=== PATIENT | female | born 1975 | race Caucasian/White ===

== ENCOUNTER → 2017-07-29 | Outpatient (CLI) | payer MEDICAID ==
[~2017-07-29] MED LIST: CYCL1TAB29 PO; LORA-474 PO; MEDR4PAK PO; OMEP40CA2 PO; PANT40TA3 PO; PREG25 PO; TRAM50TA PO; TYLETAB34 PO; ZOFR4TAB3 SL
[2017-07-29 13:35] LABS: AUTOMATED NEUTROPHIL # 7.5 TH/MM3 (1.8-7.7); BASOPHIL # 0.1 TH/MM3 (0-0.2); BASOPHIL % 0.7 % (0.0-2.0); EOSINOPHIL # 0.4 TH/MM3 (0-0.4); EOSINOPHIL % 3.4 % (0.0-4.0); HEMATOCRIT 36.9 % (35.0-46.0); HEMO FLAGS DIFF FINAL; LYMPH % 24.6 % (9.0-44.0); LYMPHOCYTE # 2.9 TH/MM3 (1.0-4.8); MEAN CORPUSCULAR HEMOGLOBIN 27.3 PG (27.0-34.0); MEAN CORPUSCULAR HGB CONC 32.5 % (32.0-36.0); MONO % 6.9 % (0.0-8.0); NEUT % 64.4 % (16.0-70.0); PLATELET COUNT 452 TH/MM3 (150-450); RED BLOOD COUNT 4.39 MIL/MM3 (4.00-5.30); RED CELL DISTRIBUTION WIDTH 15.8 % (11.6-17.2); WHITE BLOOD COUNT 11.6 TH/MM3 (4.0-11.0)
[2017-07-29 13:53] LABS: BLOOD, URINE NEG (NEG); COMMENT (UR) CULT NOT INDICATED; CULTURE IF INDICATED CULT NOT INDICATED; GLUCOSE,URINE NEG (NEG); KETONE, URINE NEG (NEG); NITRITE,URINE NEG (NEG); SQUAMOUS EPITHELIAL CELL URINE <1 /hpf (0-5); URINE COLOR YELLOW (YELLW/STRAW)
[2017-07-29 14:09] LABS: ANION GAP 6 MEQ/L (5-15); BICARBONATE 28.2 MEQ/L (21.0-32.0); BLOOD UREA NITROGEN 10 MG/DL (7-18); CHLORIDE 106 MEQ/L (98-107); GLOMERULAR FILTRATION RATE 66 ML/MIN (>89); GLUCOSE,FASTING 82 MG/DL (74-99); POTASSIUM 4.7 MEQ/L (3.5-5.1); SODIUM (NA) 140 MEQ/L (136-145)
[2017-07-29 14:11] LABS: ALT (GPT) 25 U/L (10-53); AST (GOT) 18 U/L (15-37)
[2017-07-29 14:14] LABS: ALKALINE PHOSPHATASE 110 U/L (45-117); TOTAL BILIRUBIN ADULT 0.3 MG/DL (0.2-1.0)
[2017-07-29 14:22] LABS: BHCG SCREEN QUALITATIVE 6 MIU/ML (0-5)
== END ==
LOC: CPRE 12:46
PROVIDERS: ATTEND Obstetrics & Gynecology Gynecology
DX: Z01.812 Encounter for preprocedural laboratory examination (principal); N39.3 Stress incontinence (female) (male)
CPT/HCPCS: 36415; 80053; 81001; 84703; 85025

== ENCOUNTER → 2017-08-04 | Day surgery (SDC) | payer MEDICAID ==
--- NOTE | 2017-07-29 13:09 | MH ---
cc: TRACE ACEVEDO MD DATE OF ADMISSION: 08/04/2017 DATE OF 1975 REASON FOR ADMISSION Scheduled for admission on August 04 for transobturator sling for urinary incontinence. HISTORY OF PRESENT ILLNESS The patient is a 41-year-old white female, 2, para 2, status post two C-sections, has issues with stress urinary incontinence. She has had urodynamic testing that shows no sign of detrusor instability, no excessive postvoid residual with a maximal capacity of 420 cc. She has a leaking at approximately 50% capacity. The patient has been apprised of options and she opts to proceed with a transobturator sling procedure. PAST MEDICAL HISTORY The patient's medical history is negative for heart, lung, liver disease, hypertension, diabetes or stroke. SOCIAL HISTORY Smokes a pack per day, has a 30 pack-year history. No alcohol or drugs. OB HISTORY Two C-sections. FAMILY HISTORY Noncontributory GYNECOLOGIC HISTORY No STDs or abnormal Pap smears. ALLERGIES None. MEDICATIONS None. REVIEW OF SYSTEMS As above. No chest pain, orthopnea, PND. No nausea, vomiting, fever or chills. No vaginal bleeding or discharge. Issues with stress incontinence and urge incontinence are predominant. PHYSICAL EXAMINATION VITAL SIGNS: She is afebrile. Stable blood pressure is 120/80, height is 5 feet, weight 180, BMI is 35. GENERAL: The patient is alert and oriented, in no acute distress. No sign of cognitive dysfunction or depression. HEENT: Within normal limits. NECK: Supple. No JVD. CHEST: Clear. HEART: Regular rate and rhythm. ABDOMEN: Soft, nontender. No hepatosplenomegaly. No CVA tenderness. PELVIC: Exam will be detailed under anesthesia. In the office we note POP-Q score - Aa is -3, Ap is -3, point C is -8. Total vaginal length is 10. Genital hiatus is 4. Levator strength is 4/5. No significant postvoid residual. No significant hypermobility of urethra noted. Remainder of exam to be done under anesthesia. EXTREMITIES: Normal skin, without rashes. NEURO EXAM: Nonfocal. No DVT signs. ASSESSMENT AND PLAN Patient with stress incontinence with leak demonstrated at 50% capacity. We discussed the risks, benefits and alternatives of the planned procedure including damage to surrounding organs, bleeding, infection and possibility of operative complications including retention, failure of healing resulting in erosion, pain, dyspareunia and the lack of efficacy in resolving stress incontinence. The patient has made informed choice to proceed. Regarding the urge issues, she is aware that this is most likely related to her smoking and will not improve with the surgery and actually could be worsened. She has made informed choice to proceed. At this point we will use DVT prophylaxis with sequential compression device, antibiotic prophylaxis with Ancef 2 grams IV. Anticipate outpatient procedure. MD ZEINA Rushing/ADRIENNE /12:36 PM /12:51 PM
[~2017-08-04] VITALS: Ht 152.4 cm; Wt 86.0 kg
[~2017-08-04] MED LIST changes: +*morphine SULFATE 8 MG/ML PERIprocedure ONLY ONE; +BUPIVACAINE/EPINEPHRINE 0.5% 50 ML VIAL ONE; +CHLORHEXIDINE GLUCONATE 2 % 1 PACK (2 CLOTHS) TOPICAL PRN; +DO NOT ADM ANY ANTICOAGULANT DRUGS PRN; +ESTROGENS CONJUGATED VAG CREA 15 APPL/30 GM TUBE ONE; +FLUORESCEIN SOD 10% SOLN 500 MG/5 ML AMP ONE; +INSULIN HUMAN REGULAR 1,000 UNITS/10 ML VIAL SQ PRN; +KETOROLAC TROMETHAMINE 30 MG/ML (IVP) VIAL ONE; +KETOROLAC TROMETHAMINE 60 MG/2 ML (IM) VIAL IM ONE; +LACTATED RINGER'S 1000 ML INJ 1,000 ML IV ONE; +LACTATED RINGER'S 1000 ML IV PRN; +METOPROLOL TARTRATE 25 MG TAB PO PRN; +MIDAZOLAM HCL 2 MG/2 ML VIAL IV ONE; +MIDAZOLAM HCL 2 MG/2 ML VIAL ONE; +MIDAZOLAM HCL 5 MG/5 ML VIAL ONE; +NEOSTIGMINE 3 MG/3 ML SYR IV ONE; +ONDANSETRON HCL 4 MG/2 ML VIAL IV PUSH ONE; +POVIDONE IODINE 5% (ANTISEPSIS KIT) 4 APPLICATIONS EACH NARE PRN; +PROPOFOL 200 MG/20 ML AMP IV ONE; +SODIUM CHLORID 0.9% 500 ML IV PRN; +ceFAZolin 2 GM PREMIX 50 ML IV SCH; +traMADol HCL 50 MG TAB ONE
[2017-08-04 10:40] VITALS: BP 140/80; PULSE 87; RESP 20; TEMP 98; O2SAT 97
--- NOTE | 2017-08-05 08:35 | MP ---
cc: REAGAN ACEVEDO MD DATE OF SURGERY 08/04/2017 PREOPERATIVE DIAGNOSES 1. Stress urinary continence 2. Urinary frequency and urgency POSTOPERATIVE DIAGNOSES 1. Stress urinary continence 2. Urinary frequency and urgency 3. Cystocele 4. Mild trigonitis most likely related to smoking. PROCEDURE 1. Transobturator sling using [employer]ne product Desara polypropylene sling 2. Anterior repair 3. Diagnostic cystoscopy coupled with a diagnosis of frequency and urge. SURGEON Reagan Acevedo MD ANESTHESIA General endotracheal [employer]IAL [employer]ATOR [employer] [place] staff x2 FLUIDS 1000 cc of crystalloid BLOOD LOSS 25 cc URINE OUTPUT 200 cc FINDINGS External genitalia normal POP-Q score: Aa is -1, Ap is -2. Point C is -8. Total vaginal length is 10. Genital hiatus is 6. Perineal body is 5. Following repair, repair Aa is -3. Cystoscopy shows mild trigonitis otherwise unremarkable. No enterogenic damage to the bladder or urethra. SPECIMENS None COMPLICATIONS None DISPOSITION To recover room stable. Needle and sponge counts correct. Drains, Mott catheter. Antibiotic prophylaxis Ancef 2 grams. DVT prophylaxis sequential compression device. Time-out procedure per protocol. SUMMARY OF INDICATIONS FOR THE PROCEDURE Patient with two separate issues, one is stress urinary continence. She had documented urodynamic leak at 50% capacity. No detrusor instability. The patient also has an issue with urgency and frequency issues. Her urinalysis has been negative. The urge and frequency is significantly symptomatic and plan was for a cystoscopy to assess that complaint. PROCEDURE NOTE The patient was taken to the operating room theater, identified, prepped and draped in a fashion appropriate for the planned procedure. She was in the dorsolithotomy position with careful attention paid to placement of legs in the stirrups to avoid undue stress to sensitive neurovascular structures. The above findings noted. Neurovascular integrity documented. Mott catheter was placed. Methylene blue was instilled into the bladder. The obturator foramen were identified on each side, infiltrated with epinephrine/Marcaine 0.5% solution. The urethra was identified. The mid urethral portion identified as well by palpating the Mott bulb. The vaginal mucosa was infiltrated with the Marcaine solution. Dissection was performed with sharp scissors. There was no spill of methylene blue with dissection. A C-hook was used from a lateral to medial position on each side. The sling was placed using a scalpel handle as a spacer. Anterior repair performed in standard fashion without complication. Hemostatic matrix was used to obviate the need for packing. Cystoscopy was performed with the above findings. A 70 degree scope and normal saline used for distension medium. The only significant finding was [id number] trigonitis. No frond-like lesions. No ulcerations. No trabeculations. No sign of iatrogenic damage to the bladder or urethra. The trigonitis most likely related to smoking. The patient reversed from anesthesia, taken to the Recovery Room in stable condition. We will perform a voiding trial and plans for discharge from same day floor per protocol. MD ZEINA Rushing/REGINA /9:11 AM /8:18 AM
== END | disposition home or self-care (01) ==
LOC: HSDC 06:03
PROVIDERS: ATTEND Obstetrics & Gynecology Gynecology
DX: N39.3 Stress incontinence (female) (male) (principal); R39.15 Urgency of urination; N81.10 Cystocele, unspecified; N30.30 Trigonitis without hematuria; F17.210 Nicotine dependence, cigarettes, uncomplicated
CPT/HCPCS: 00860; 57240; 57288; C1771; J0690; J1885; J2250; J2270; J2405; J2710; J3010; J7120; J1170; J2930

== ENCOUNTER 2017-08-05 15:47 | Emergency (ER) | payer MEDICAID ==
[~2017-08-05] VITALS: Ht 152.4 cm; Wt 90.0 kg
[~2017-08-05 15:47] MED LIST changes: -*morphine SULFATE 8 MG/ML PERIprocedure ONLY ONE; -BUPIVACAINE/EPINEPHRINE 0.5% 50 ML VIAL ONE; -CHLORHEXIDINE GLUCONATE 2 % 1 PACK (2 CLOTHS) TOPICAL PRN; -CYCL1TAB29 PO; -DO NOT ADM ANY ANTICOAGULANT DRUGS PRN; -ESTROGENS CONJUGATED VAG CREA 15 APPL/30 GM TUBE ONE; -FLUORESCEIN SOD 10% SOLN 500 MG/5 ML AMP ONE; -INSULIN HUMAN REGULAR 1,000 UNITS/10 ML VIAL SQ PRN; -KETOROLAC TROMETHAMINE 30 MG/ML (IVP) VIAL ONE; -KETOROLAC TROMETHAMINE 60 MG/2 ML (IM) VIAL IM ONE; -LACTATED RINGER'S 1000 ML INJ 1,000 ML IV ONE; -LACTATED RINGER'S 1000 ML IV PRN; -LORA-474 PO; -MEDR4PAK PO; -METOPROLOL TARTRATE 25 MG TAB PO PRN; -MIDAZOLAM HCL 2 MG/2 ML VIAL IV ONE; -MIDAZOLAM HCL 2 MG/2 ML VIAL ONE; -MIDAZOLAM HCL 5 MG/5 ML VIAL ONE; -NEOSTIGMINE 3 MG/3 ML SYR IV ONE; -ONDANSETRON HCL 4 MG/2 ML VIAL IV PUSH ONE; -PANT40TA3 PO; -POVIDONE IODINE 5% (ANTISEPSIS KIT) 4 APPLICATIONS EACH NARE PRN; -PROPOFOL 200 MG/20 ML AMP IV ONE; -SODIUM CHLORID 0.9% 500 ML IV PRN; -TRAM50TA PO; -TYLETAB34 PO; -ZOFR4TAB3 SL; -ceFAZolin 2 GM PREMIX 50 ML IV SCH; -traMADol HCL 50 MG TAB ONE
[2017-08-05] MEDS ORDERED: IOHEXOL 350 MG/ML 10 ML VIAL (for RAD DIAG) IVCONTRAST ONE (15:48)
[2017-08-05 15:49] VITALS: BP 150/92; PULSE 99; RESP 13; TEMP 98.4; O2SAT 99
[2017-08-05 15:59] VITALS: BP 140/80; PULSE 84; RESP 17; O2SAT 98
[2017-08-05] MEDS ORDERED: HYDROmorphone HCL PF 1 MG/ML VIAL IV PUSH ONE (16:00)
[2017-08-05] MEDS ORDERED: ONDANSETRON HCL 4 MG/2 ML VIAL IVP ONE (16:00)
--- NOTE | 2017-08-05 16:11 | PD ---
HPI Chief Complaint: Medical Clearance Time Seen by Provider: 15:56 Travel History International Travel<30 days: No Contact w/Intl Traveler<30days: No History of Present Illness HPI 41-year-old female. The patient underwent bladder sling surgery by Dr. Billings yesterday. She reports nausea vomiting today. She reports decreased urination today. She also has pain in the pelvis with radiation to the back. It's constant. Severity moderate. No fever. Pain is worse with palpation. PFSH Past Medical History Cancer: No Cardiovascular Problems: No Diabetes: No Endocrine: No GERD: Yes Genitourinary: No Hepatitis: No Hiatal Hernia: Yes Musculoskeletal: Yes (DDD) Neurologic: Yes (NEUROPATHY) Respiratory: No Thyroid Disease: No Tetanus Vaccination: < 5 Years ?: Not LMP: 06/30/17 Past Surgical History Abdominal Surgery: Yes (HH SURGERYX2) Body Medical Devices: TWO RODES IN BACK Section: Yes Genitourinary Surgery: Yes (BLADDER SLING) Gynecologic Surgery: Yes (C-SECTIONS X2) Pacemaker: No Social History Alcohol Use: No Tobacco Use: Yes (1 PPD) Substance Use: No Allergies-Medications (Allergen,Severity, Reaction): Coded Allergies: No Known Allergies (Unverified , 08/05/17) Reported Meds & Prescriptions Reported Meds & Active Scripts Active Reported Omeprazole 40 Mg Cap 40 Mg PO DAILY Lyrica (Pregabalin) 25 Mg Cap 25 Mg PO DAILY Review of Systems Except as stated in HPI: all other systems reviewed are Neg General / Constitutional: No: Fever Physical Exam Narrative GENERAL: 41-year-old female well-nourished well-developed mild distress SKIN: Warm and dry. HEAD: Atraumatic. Normocephalic. EYES: Pupils equal and round. No scleral icterus. No injection or drainage. ENT: No nasal bleeding or discharge. Mucous membranes pink and moist. NECK: Trachea midline. No JVD. CARDIOVASCULAR: Regular rate and rhythm. RESPIRATORY: No accessory muscle use. Clear to auscultation. Breath sounds equal bilaterally. GASTROINTESTINAL: Soft. Tenderness palpation suprapubic abdomen. MUSCULOSKELETAL: Extremities without clubbing, cyanosis, or edema. No obvious deformities. NEUROLOGICAL: Awake and alert. No obvious cranial nerve deficits. Motor grossly within normal limits. Five out of 5 muscle strength in the arms and legs. Normal speech. PSYCHIATRIC: Appropriate mood and affect; insight and judgment normal. Data Data Last Documented VS Vital Signs Date Time Temp Pulse Resp B/P (MAP) Pulse Ox O2 Delivery O2 Flow Rate FiO2 08/05/17 17:44 85 19 127/68 (87) 100 Room Air 08/05/17 15:49 98.4 Vital signs reviewed Orders Orders Complete Blood Count With Diff (08/05/17 16:00) Comprehensive Metabolic Panel (08/05/17 16:00) Urinalysis - C+S If Indicated (08/05/17 16:00) Iv Access Insert/Monitor (08/05/17 16:00) Ecg Monitoring (08/05/17 16:00) Ondansetron Inj (Zofran Inj) (08/05/17 16:00) Hydromorphone Pf Inj (Dilaudid Pf Inj) (08/05/17 16:00) Ct Abd/Pel W Iv Contrast(Rout) (08/05/17 16:02) Beta Hcg (Quant/Titer) (08/05/17 16:02) Ed Urine Pregnancytest Poc (08/05/17 16:02) Sodium Chlor 0.9% 1000 Ml Inj (Ns 1000 M (08/05/17 16:15) Iohexol 350 Inj (Omnipaque 350 Inj) (08/05/17 15:48) Promethazine Inj (Phenergan Inj) (08/05/17 17:45) Bladder Scan PRN (08/05/17 17:53) Urine Culture (08/05/17 17:30) Oxycodone-Acetamin 5-325 Mg (Percocet (08/05/17 18:30) Labs Laboratory Tests Test 08/05/17 16:10 08/05/17 17:30 White Blood Count 14.9 TH/MM3 Red Blood Count 4.17 MIL/MM3 Hemoglobin 11.1 GM/DL Hematocrit 35.1 % Mean Corpuscular Volume 84.2 FL Mean Corpuscular Hemoglobin 26.7 PG Mean Corpuscular Hemoglobin Concent 31.7 % Red Cell Distribution Width 16.3 % Platelet Count 449 TH/MM3 Mean Platelet Volume 7.2 FL Neutrophils (%) (Auto) 61.1 % Lymphocytes (%) (Auto) 30.4 % Monocytes (%) (Auto) 6.5 % Eosinophils (%) (Auto) 1.5 % Basophils (%) (Auto) 0.5 % Neutrophils # (Auto) 9.1 TH/MM3 Lymphocytes # (Auto) 4.5 TH/MM3 Monocytes # (Auto) 1.0 TH/MM3 Eosinophils # (Auto) 0.2 TH/MM3 Basophils # (Auto) 0.1 TH/MM3 CBC Comment DIFF FINAL Differential Comment Blood Urea Nitrogen 9 MG/DL Creatinine 1.18 MG/DL Random Glucose 86 MG/DL Total Protein 7.4 GM/DL Albumin 3.4 GM/DL Calcium Level 8.7 MG/DL Alkaline Phosphatase 122 U/L Aspartate Amino Transf (AST/SGOT) 49 U/L Alanine Aminotransferase (ALT/SGPT) 27 U/L Total Bilirubin 0.4 MG/DL Sodium Level 135 MEQ/L Potassium Level 4.1 MEQ/L Chloride Level 102 MEQ/L Carbon Dioxide Level 26.3 MEQ/L Anion Gap 7 MEQ/L Estimat Glomerular Filtration Rate 50 ML/MIN Human Chorionic Gonadotropin, Quant 8 MIU/ML Urine Color YELLOW Urine Turbidity CLEAR Urine pH 6.0 Urine Specific [place] GREATER THAN 1.050 Urine Protein 30 mg/dL Urine Glucose (UA) NEG mg/dL Urine Ketones NEG mg/dL Urine Occult Blood LARGE Urine Nitrite NEG Urine Bilirubin NEG Urine Urobilinogen LESS THAN 2.0 MG/DL Urine Leukocyte Esterase SMALL Urine RBC 140 /hpf Urine WBC 20 /hpf Urine Squamous Epithelial Cells 9 /hpf Urine Mucus FEW /lpf Microscopic Urinalysis Comment CULTURE INDICATED MDM Medical Decision Making Medical Screen Exam Complete: Yes Emergency Medical Condition: Yes Medical Record Reviewed: Yes Differential Diagnosis intraperitoneal bleed, UTI, anemia, renal failure, hepatobiliary disease Narrative Course CBC & BMP Diagram 08/05/17 16:10 Total Protein 7.4, Albumin 3.4, Calcium Level 8.7, Alkaline Phosphatase 122 H, Aspartate Amino Transf (AST/SGOT) 49 H, Alanine Aminotransferase (ALT/SGPT) 27, Total Bilirubin 0.4 Last 24 hours Impressions Abdomen/Pelvis CT 08/05/17 1602 Signed Impressions: Service Date/Time: , August 05, 2017 16:56 - CONCLUSION: Tiny amount of air within the bladder could be related to previous Mott catheter or conceivably intercourse. Also within the differential would be a colovesicular fistula, correlate clinically. Anterior pelvic abdominal wall hernia containing mostly fat without evidence of bowel obstruction Bennie Adrian MD Case discussed with Dr. Billings. Bladder scan was advised. Postvoid residual 20 mL or less. Patient ready for discharge. Diagnosis Primary Impression: Post-operative pain Referrals: Reagan Billings MD 1 day Additional Instructions: You have a choice when it comes to health care, and we are glad that you chose [facility]. Hopefully, we have met your expectations on today's visit. You are welcome to return to [facility] at any time, as we are committed to meeting the health care needs of our community. Med/Other Pt SpecificInfo: No Change to Meds Disposition: 01 DISCHARGE HOME Condition: Stable Ezra Jain MD Aug 05, 2017 16:11
[2017-08-05] MEDS ORDERED: SODIUM CHLOR 0.9% 1000 ML INJ 1,000 ML IV ONE (16:15)
[2017-08-05 16:42] LABS: AUTOMATED NEUTROPHIL # 9.1 TH/MM3 (1.8-7.7); BASOPHIL # 0.1 TH/MM3 (0-0.2); BASOPHIL % 0.5 % (0.0-2.0); EOSINOPHIL # 0.2 TH/MM3 (0-0.4); EOSINOPHIL % 1.5 % (0.0-4.0); HEMATOCRIT 35.1 % (35.0-46.0); HEMO FLAGS DIFF FINAL; LYMPH % 30.4 % (9.0-44.0); LYMPHOCYTE # 4.5 TH/MM3 (1.0-4.8); MEAN CELL VOLUME 84.2 FL (80.0-100.0); MEAN CORPUSCULAR HEMOGLOBIN 26.7 PG (27.0-34.0); MEAN CORPUSCULAR HGB CONC 31.7 % (32.0-36.0); MONO % 6.5 % (0.0-8.0); NEUT % 61.1 % (16.0-70.0); PLATELET COUNT 449 TH/MM3 (150-450); RED BLOOD COUNT 4.17 MIL/MM3 (4.00-5.30); RED CELL DISTRIBUTION WIDTH 16.3 % (11.6-17.2); WHITE BLOOD COUNT 14.9 TH/MM3 (4.0-11.0)
[2017-08-05 17:04] LABS: ALT (GPT) 27 U/L (10-53); ANION GAP 7 MEQ/L (5-15); AST (GOT) 49 U/L (15-37); BICARBONATE 26.3 MEQ/L (21.0-32.0); BLOOD UREA NITROGEN 9 MG/DL (7-18); CHLORIDE 102 MEQ/L (98-107); GLOMERULAR FILTRATION RATE 50 ML/MIN (>89); POTASSIUM 4.1 MEQ/L (3.5-5.1); SODIUM (NA) 135 MEQ/L (136-145)
[2017-08-05 17:07] LABS: ALKALINE PHOSPHATASE 122 U/L (45-117); TOTAL BILIRUBIN ADULT 0.4 MG/DL (0.2-1.0)
--- NOTE | 2017-08-05 17:17 | RADRPT ---
EXAM DATE/TIME: 08/05/2017 16:56 [facility] COMPARISON: No previous studies available for comparison. INDICATIONS : Lower vaginal pain, post bladder sling surgery yesterday. IV CONTRAST: 91 cc Omnipaque 350 (iohexol) IV ORAL CONTRAST: No oral contrast ingested. RADIATION DOSE: 14.72 CTDIvol (mGy) MEDICAL HISTORY : Neoropathy SURGICAL HISTORY : section. Bladder sling sx, Hiatal hernia x2 ENCOUNTER: Initial ACUITY: 1 day PAIN SCALE: 10/10 LOCATION: Bilateral lower quadrant TECHNIQUE: Volumetric scanning of the abdomen and pelvis was performed. Using automated exposure control and ad justment of the mA and/or kV according to patient size, radiation dose was kept as low as reasonably achievable to obtain optimal diagnostic quality images. DICOM format image data is available electro nically for review and comparison. FINDINGS: LOWER LUNGS: The visualized lower lungs are clear. Moderate size hiatal hernia. LIVER: Homogeneous density without lesion. There is no dilation of the biliary tree. No calcified gallston es. SPLEEN: Normal size without lesion. PANCREAS: Within normal limits. KIDNEYS: Normal in size and shape. There is no mass, stone or hydronephrosis. ADRENAL GLANDS: Within normal limits. VASCULAR: There is no aortic aneurysm. BOWEL/MESENTERY: The stomach, small bowel, and colon demonstrate no acute abnormality. There is no free intraperitone al air or fluid. ABDOMINAL WALL: Prominent diastases of the rectus musculature below previous hernia mesh with a small hernia measurin g 7.9 x 3.4 cm across. It involves a loop of small bowel but there is no evidence of obstruction. RETROPERITONEUM: There is no lymphadenopathy. BLADDER: Tiny amount of air within the bladder. REPRODUCTIVE: Within normal limits. INGUINAL: There is no lymphadenopathy or hernia. MUSCULOSKELETAL: Within normal limits for patient age. L4-5 is fused CONCLUSION: Tiny amount of air within the bladder could be related to previous Mott catheter or conceivably inte rcourse. Also within the differential would be a colovesicular fistula, correlate clinically. Anteri or pelvic abdominal wall hernia containing mostly fat without evidence of bowel obstruction Bennie Adrian MD on August 05, 2017 at 17:11 Board Certified Radiologist. This report was verified electronically.
[2017-08-05 17:44] VITALS: BP 127/68; PULSE 85; RESP 19; O2SAT 100
[2017-08-05] MEDS ORDERED: PROMETHAZINE INJ 25 MG/ML VIAL IM ONE (17:45)
[2017-08-05 17:55] LABS: BETA HCG QUANT 8 MIU/ML (0-5)
[2017-08-05 18:16] LABS: BLOOD, URINE LARGE (NEG); COMMENT (UR) CULTURE INDICATED; CULTURE IF INDICATED CULTURE INDICATED; GLUCOSE,URINE NEG (NEG); KETONE, URINE NEG (NEG); MUCUS URINE FEW /lpf (OCC); NITRITE,URINE NEG (NEG); SQUAMOUS EPITHELIAL CELL URINE 9 /hpf (0-5); URINE COLOR YELLOW (YELLW/STRAW)
[2017-08-05] MEDS ORDERED: oxyCODONE/ACETAMINOPHEN 5 MG/325 MG TAB PO ONE (18:30)
[2017-08-06] MEDS ORDERED: TRAM50TA PO (17:03)
[2017-08-06] MEDS ORDERED: CYCL1TAB29 PO (20:42)
[2017-08-06] MEDS ORDERED: LORA-474 PO (20:42)
[2017-08-06] MEDS ORDERED: TYLETAB34 PO (20:42)
[2017-08-06] MEDS ORDERED: MEDR4PAK PO (20:42)
[2017-08-06] MEDS ORDERED: ZOFR4TAB3 SL (20:42)
== END 2017-08-05 18:38 | disposition home or self-care (01) ==
LOC: NEPC 15:47
DX: G89.18 Other acute postprocedural pain (principal); R11.2 Nausea with vomiting, unspecified
CPT/HCPCS: 74177; 80053; 81001; 84702; 84703; 85025; 87086; 96361; 96372; 96374; 96375; 99285; J1170; J2405; J2550; J7030; Q9967